=== PATIENT | female | born 1980 | race Caucasian/White ===

== ENCOUNTER → 2024-09-06 | Outpatient (CLI) | payer OTHER | END | disposition home or self-care (01) | LOC: MAMMO 09:27 | PROVIDERS: ATTEND Nurse Practitioner Family | DX: Z12.31 Encounter for screening mammogram for malignant neoplasm of breast (principal) ==

== ENCOUNTER → 2024-10-21 | Day surgery (SDC) | payer OTHER | LOC: SDC 09-16 09:30 | PROVIDERS: ATTEND Surgery ==